=== PATIENT | male | born 1950 | race Caucasian/White ===

== ENCOUNTER → 2021-01-10 | Outpatient (CLI) | payer MEDICARE, OTHER ==
--- NOTE | 2021-01-10 11:34 | CARDNUC ---
[place] [address] CARDIAC NUCLEAR IMAGING REPORT Name: KAREN WILLARD Room: [facility]#: [id number] Admission: 01/10/21 Attend Phys: Zachery Carpenter, Discharge: Date of : 46 Date of Service: 01/10/21 1134 Report #: [id number] THIS REPORT FOR: cc: Tommy Leroy Adam J DO Biggs, F. Douglas MD [facility] ~ APPROVED REPORT Study performed: 01/10/2021 07:31:00 Indication: l arm pain, dizzy Patient Location: Out-Patient Stress Nurse: Kelli Ventura RN Ht: 5 ft 9 in Wt: 197 lbs BSA: 2.05 m2 BMI: 29.08 Medical History Medical History: HTN, Hyperlipidemia Medications: lisinopril Allergies: No known drug allergies Cardiac Risk Factors: Age, HTN, Hyperlipidemia Exercise History: Indeterminate Resting Data Rest SPECT myocardial perfusion imaging was performed in supine position 30 minutes following the intravenous injection of 10.1 mCi of Tc-99m Sestamibi. Time of rest injection: 07:55 The images were gated to evaluate regional wall motion and calculate left ventricular ejection fraction. Administration Route: IV Administration Site: Right Hand Pharmacologic Stress Pharmacologic stress test was performed by injecting Regadenoson 0.4 mg IV push over 10-15 seconds immediately followed by the intravenous injection of 32.9 mCi of Tc-99m Sestamibi. Time of stress injection: 09:20 Administration Route: IV Administration Site: Right Hand Heart Rate at time of stress injection: 77 bpm. Gated Stress SPECT was performed 40 [place] [address] CARDIAC NUCLEAR IMAGING REPORT Name: KAREN WILLARD Room: [facility]#: [id number] Admission: 01/10/21 Attend Phys: Zachery Carpenter, Discharge: Date of : 46 Date of Service: 01/10/21 1134 Report #: [id number] The images were gated to evaluate regional wall motion and calculate left ventricular ejection fraction. Prone imaging was performed. Stress Test Details Stress Test: Pharmacologic stress testing performed using 0.4 mg of regadenoson per 5 mL given IV over 10 seconds. HR Max Heart Rate (APMHR): 148 bpm Resting HR: 74 bpm Target HR (85% APMHR): 125 bpm Max HR Achieved: 77 bpm % of APMHR: 52 Recovery HR: 74 bpm HR response to stress: Normal HR response to stress BP Resting BP: 128/77 mmHg Max BP: 101/57 mmHg Recovery BP: 127/69 mmHg BP response to stress: Normal blood pressure response to stress. ECG Resting ECG: Sinus Rhythm, normal EKG Stress ECG: Sinus Rhythm, normal EKG ST Change: None Arrhythmia: None Recovery ECG: Sinus Rhythm, normal EKG Recovery ST Change: None Recovery Arrhythmia: None Clinical Reason for Termination: Completed protocol Stress Symptoms: None Stress ECG Conclusion Clinical: Non-ischemic Non-diagnostic pharmacologic EKG stress due to failure to attain target HR. Study Quality Study: Good Artifact: Mild Diaphragmatic artifact Lung Uptake: Normal Study Data At rest, the left ventricular ejection fraction was 64%.. [place] [address] CARDIAC NUCLEAR IMAGING REPORT Name: SUDHEERKAREN M Room: [facility]#: [id number] Admission: 01/10/21 Attend Phys: Zachery Carpenter, Discharge: Date of : 46 Date of Service: 01/10/21 1134 Report #: [id number] Post stress, the left ventricular ejection was 63%.. SSS: 7 SRS: 11 SDS: -4 TID = 0.97. Perfusion The resting study demonstrated a small very mild septal defect and a large mild to moderate in severity inferior defect. The post stress images were unchanged from those seen at rest and are as described above. Prone images demonstrated no defects. There were no reversible defects seen and there was no evidence of myocardial ischemia.No evidence of stress induced ischemia or prior myocardial infarction. Images were reviewed using [employer]. Wall Motion Normal left ventricular wall motion. Nuclear Conclusion ECG Findings: non-diagnostic Clinical Findings: negative for ischemia Nuclear Findings: negative for ischemia Exercise Capacity: not assessed Left Ventricular Function: normal Risk Study: low Normal study. No scintigraphic evidence for myocardial ischemia or scar. <Conclusion> Clinical: Non-ischemic Non-diagnostic pharmacologic EKG stress due to failure to attain target HR. <ELECTRONICALLY SIGNED> By: Candida Terry MD, [facility] 01/10/21 1134 1134 1134 Candida Terry MD, FACC /INF
== END ==
LOC: M.NUC 07:23
PROVIDERS: ATTEND Internal Medicine Cardiovascular Disease
DX: I10 Essential (primary) hypertension (principal); M79.602 Pain in left arm; R42 Dizziness and giddiness